=== PATIENT | female | born 1950 | race Caucasian/White ===

== ENCOUNTER 2018-10-19 08:00 | Emergency (ER) | payer MEDICARE, MEDICAID ==
[~2018-10-19] VITALS: Ht 157.5 cm; Wt 54.5 kg
[~2018-10-19 08:00] MED LIST: ALBU6.7H INH; AZIT250T PO; ESTR0.3T10 PO; HYDR1TAB PO
[2018-10-19 08:09] VITALS: BP 155/90
[2018-10-19] MEDS ORDERED: PENI500T2 PO (08:30)
[2018-10-19] MEDS ORDERED: HYDROcodone/acetaminophen 5mg/325mg tablet PO ONE (08:30)
--- NOTE | 2018-10-19 08:38 | NUR ---
PATIENT REQUEST AN RX FOR NORCO SINCE NO ONE CAN DRIVE HER HOME.ASTER CAMPBELL AWARE.
[2018-10-19] MEDS ORDERED: HYDR-3965 PO (08:49)
== END 2018-10-19 09:22 | disposition home or self-care (01) ==
LOC: ER 08:01
DX: K02.9 Dental caries, unspecified (principal); I10 Essential (primary) hypertension; M19.90 Unspecified osteoarthritis, unspecified site; Z98.890 Other specified postprocedural states; Z88.2 Allergy status to sulfonamides; Z79.1 Long term (current) use of non-steroidal anti-inflammatories (NSAID); Z79.899 Other long term (current) drug therapy
CPT/HCPCS: 99283

== ENCOUNTER 2022-01-21 21:15 | Emergency (ER) | payer MEDICARE, MEDICAID ==
[~2022-01-21] VITALS: Ht 157.5 cm; Wt 58.2 kg
[~2022-01-21 21:15] MED LIST changes: -ALBU6.7H INH; +ALBU6.7H9 INH
[2022-01-21 21:22] VITALS: BP 139/83
[2022-01-21 21:52] LABS: BASOPHILS # (AUTO) 0.1 X10'3 (0-0.2); BASOPHILS % (AUTO) 0.6 % (0-1); EOSINOPHILS # (AUTO) 0.3 X10'3 (0-0.9); EOSINOPHILS % (AUTO) 2.7 % (0-6); HEMATOCRIT 39.3 % (35.0-45.0); HEMOGLOBIN 13.1 g/dl (12.0-16.0); LYMPHOCYTES # (AUTO) 3.5 X10'3 (1.1-4.8); LYMPHOCYTES % (AUTO) 34.4 % (21-51); MEAN CORPUSCULAR HEMOGLOBIN 29.9 PG (27.0-31.0); MEAN CORPUSCULAR HGB CONC 33.5 g/dL (33.0-36.5); MEAN CORPUSCULAR VOLUME 89.3 FL (78-98); MEAN PLATELET VOLUME 7.5 FL (7.4-10.4); MONOCYTES # (AUTO) 0.7 X10'3 (0-0.9); MONOCYTES % (AUTO) 6.8 % (2-12); NEUTROPHILS # (AUTO) 5.6 X10'3 (1.8-7.7); NEUTROPHILS % (AUTO) 55.5 % (42-75); PLATELET COUNT 328 X10'3 (140-440); RED BLOOD COUNT 4.39 X10'6 (4.20-5.60); RED CELL DISTRIBUTION WIDTH 13.5 % (11.5-14.5); WHITE BLOOD COUNT 10.1 X10'3 (4.5-11.0)
[2022-01-21 22:08] LABS: ALANINE AMINOTRANSFERASE 27 U/L (12-78); ALBUMIN 3.9 G/DL (3.4-5.0); ALBUMIN/GLOBULIN RATIO 1.1 (1.1-1.5); ALKALINE PHOSPHATASE 136 IU/L (46-116); ANION GAP 14 (8-16); ASPARTATE AMINO TRANSFERASE 23 U/L (10-37); BILIRUBIN,TOTAL 0.6 MG/DL (0.1-1.0); BLOOD UREA NITROGEN 13 MG/DL (7-18); BUN/CREATININE RATIO 14.8 (6.6-38.0); CALCIUM 9.2 MG/DL (8.5-10.1); CHLORIDE 108 MMOL/L (99-107); CREATININE 0.88 MG/DL (0.40-0.90); GLUCOSE 113 MG/DL (70-104); POTASSIUM 3.6 MMOL/L (3.5-5.1); SODIUM 145 MMOL/L (135-145); TOTAL CARBON DIOXIDE 23.4 MMOL/L (24-32); TOTAL PROTEIN 7.6 G/DL (6.4-8.2); eGFR 63 ML/MIN
== END 2022-01-22 02:39 | disposition left against medical advice (07) ==
LOC: ER 21:16
DX: R53.1 Weakness (principal); Z53.21 Procedure and treatment not carried out due to patient leaving prior to being seen by health care provider
CPT/HCPCS: 36415; 71045; 80053; 83880; 84484; 85025; 93005

== ENCOUNTER 2022-10-18 07:38 | Emergency (ER) | payer MEDICARE, MEDICAID ==
[~2022-10-18] VITALS: Ht 157.5 cm; Wt 59.1 kg
[~2022-10-18 07:38] MED LIST changes: +ALBU6.7H14 INH; -ALBU6.7H9 INH
[2022-10-18 08:06] VITALS: BP 165/89
[2022-10-18] MEDS ORDERED: meclizine 12.5mg tablet PO ONE (09:30)
[2022-10-18] MEDS ORDERED: LORazepam 1 MG tablet PO ONE (09:30)
[2022-10-18] MEDS ORDERED: MECL-159 PO (09:34)
== END 2022-10-18 10:10 | disposition home or self-care (01) ==
LOC: ER 07:40
DX: H81.12 Benign paroxysmal vertigo, left ear (principal); I10 Essential (primary) hypertension; M19.90 Unspecified osteoarthritis, unspecified site; G89.29 Other chronic pain; M54.50 Low back pain, unspecified; Z90.710 Acquired absence of both cervix and uterus; Z88.2 Allergy status to sulfonamides
CPT/HCPCS: 99283; J8597

== ENCOUNTER 2023-07-27 18:57 | Emergency (ER) | payer MEDICARE, MEDICAID ==
[~2023-07-27] VITALS: Ht 157.5 cm; Wt 59.1 kg
[~2023-07-27 18:57] MED LIST changes: +MECL-302 PO
[2023-07-27 19:46] LABS: BILIRUBIN,URINE NEGATIVE (Neg); CLARITY,URINE CLOUDY (Clear); COLOR,URINE YELLOW (Yellow); GLUCOSE, URINE NEGATIVE (Neg); KETONES,URINE NEGATIVE (Neg); LEUKOCYTE ESTERASE ,URINE MODERATE (Neg); OCCULT BLOOD,URINE LARGE (Neg); PROTEIN,URINE 30 mg/dl (Neg)
[2023-07-27 20:04] LABS: NITRITES, URINE NEGATIVE (Neg); UA COLLECTION TYPE CLN CATCH MIDSTREAM
[2023-07-27 20:21] LABS: MUCUS STRANDS NONE SEEN /LPF (Neg); RBC,URINE TNTC /HPF (0-2); TRANSITIONAL EPI CELLS,URINE FEW /HPF; WBC,URINE TNTC /HPF (0-4)
[2023-07-27] MEDS ORDERED: CEFD300C3 PO (20:22)
[2023-07-27 20:23] LABS: SQUAMOUS EPITHELIAL CELL,UR MODERATE /LPF (FEW)
[2023-07-27 20:24] LABS: BACTERIA,URINE 4+ /HPF (Neg); WBC CLUMPS,URINE FEW /HPF (NEGATIVE)
[2023-07-27 20:30] VITALS: BP 177/85; PULSE 70; RESP 16; TEMP 98.6; O2SAT 95
== END 2023-07-27 21:23 | disposition home or self-care (01) ==
LOC: ER 18:58
DX: N39.0 Urinary tract infection, site not specified (principal); R31.9 Hematuria, unspecified; I10 Essential (primary) hypertension; G89.29 Other chronic pain; Z90.710 Acquired absence of both cervix and uterus; Z79.2 Long term (current) use of antibiotics; Z79.899 Other long term (current) drug therapy; Z88.2 Allergy status to sulfonamides
CPT/HCPCS: 81001; 87077; 87088; 87186; 99283

== ENCOUNTER 2023-10-17 12:19 | Emergency (ER) | payer MEDICARE, MEDICAID ==
[~2023-10-17] VITALS: Ht 157.5 cm; Wt 58.0 kg
[2023-10-17] MEDS ORDERED: AZIT250T83 PO (14:49)
[2023-10-17] MEDS ORDERED: ALBU8HFA INH (14:49)
[2023-10-17 15:03] VITALS: BP 165/96; PULSE 80; RESP 16; TEMP 98.5; O2SAT 100
== END 2023-10-17 15:05 | disposition home or self-care (01) ==
LOC: ER 12:20
DX: J06.9 Acute upper respiratory infection, unspecified (principal); Z20.822 Contact with and (suspected) exposure to COVID-19; I10 Essential (primary) hypertension; M19.90 Unspecified osteoarthritis, unspecified site; M54.9 Dorsalgia, unspecified; F41.9 Anxiety disorder, unspecified; Z90.710 Acquired absence of both cervix and uterus; Z88.2 Allergy status to sulfonamides
CPT/HCPCS: 36415; 71045; 87502; 87503; 87811; 99284

== ENCOUNTER 2024-08-20 07:30 | Inpatient (IN) | payer MEDICARE, MEDICAID ==
[2024-08-16 14:36] LABS: BASOPHILS # (AUTO) 0.1 X10'3 (0-0.2); BASOPHILS % (AUTO) 0.6 % (0-1); EOSINOPHILS # (AUTO) 0.2 X10'3 (0-0.9); EOSINOPHILS % (AUTO) 2.4 % (0-6); LYMPHOCYTES # (AUTO) 3.3 X10'3 (1.1-4.8); LYMPHOCYTES % (AUTO) 34.9 % (21-51); MEAN CORPUSCULAR HEMOGLOBIN 30.8 PG (27.0-31.0); MEAN CORPUSCULAR HGB CONC 33.4 g/dL (33.0-36.5); MEAN CORPUSCULAR VOLUME 92.3 FL (78-98); MEAN PLATELET VOLUME 7.8 FL (7.4-10.4); MONOCYTES # (AUTO) 0.7 X10'3 (0-0.9); MONOCYTES % (AUTO) 7.7 % (2-12); NEUTROPHILS # (AUTO) 5.1 X10'3 (1.8-7.7); NEUTROPHILS % (AUTO) 54.4 % (42-75); PRE OP HEMATOCRIT 39.4 % (35.0-45.0); PRE OP HEMOGLOBIN 13.1 g/dL (12.0-16.0); PRE OP PLATELET COUNT 302 X10'3 (140-440); PRE OP WHITE BLOOD COUNT 9.4 10'3 (4.8-10.8); RED BLOOD COUNT 4.26 X10'6 (4.20-5.60)
[2024-08-16 14:40] LABS: ALBUMIN 3.7 G/DL (3.4-5.0); ALBUMIN/GLOBULIN RATIO 1.1 (1.1-1.5); ALKALINE PHOSPHATASE 138 IU/L (46-116); BLOOD UREA NITROGEN 15 MG/DL (7-18); BUN/CREATININE RATIO 21.1 (10.0-20.0); CALCIUM 8.9 MG/DL (8.5-10.1); CHLORIDE 107 MMOL/L (99-107); CREATININE 0.71 MG/DL (0.40-0.90); PRE OP ALT 27 U/L (30-65); PRE OP ANION GAP 7 (8-16); PRE OP AST 31 U/L (10-37); PRE OP BILIRUB, TOTAL 0.8 MG/DL (0.0-1.0); PRE OP GLUCOSE 92 MG/DL (70-104); PRE OP POTASSIUM 4.4 MMOL/L (3.4-5.1); PRE OP SODIUM 142 MMOL/L (135-145); TOTAL CARBON DIOXIDE 27.7 MMOL/L (24-32); TOTAL PROTEIN 7.2 G/DL (6.4-8.2); eGFR 80 ML/MIN
[~2024-08-20] VITALS: Ht 157.5 cm; Wt 63.5 kg
[~2024-08-20 07:30] MED LIST changes: -ALBU6.7H14 INH; -AZIT250T PO; -ESTR0.3T10 PO; -HYDR1TAB PO; -MECL-302 PO; +NO HOME MEDS
[2024-08-21] VITALS (38 sets, daily range): BP systolic 112–171; BP diastolic 54–100; PULSE 47–95; RESP 10–22; TEMP 97.5–98.4; O2SAT 92–98
[2024-08-21] MEDS: ceFAZolin 2gm in dextrose, iso 50 ML IV ONE (06:02)
[2024-08-21] MEDS: famotidine 20mg tablet PO ONE (06:38)
[2024-08-21] MEDS: tranexamic acid 650mg tablet PO ONE (06:38)
[2024-08-21] MEDS: vancomycin/NS 1 GM ADD-VANTAGE 250 ML IV ONE (06:38)
[2024-08-21] MEDS ORDERED: vancomycin 1,000mg inj ONE (06:52)
[2024-08-21] MEDS ORDERED: ROPIVAcaine 0.5% (5mg/ml) 30ml vial ONE ×2 (06:53→07:29)
[2024-08-21] MEDS ORDERED: MIDAZolam 1 MG/ML 5ML VIAL ONE (07:20)
[2024-08-21] MEDS ORDERED: fentaNYL/PF 50MCG/1 ML 2ML syringe ONE (07:20)
[2024-08-21] MEDS ORDERED: propofol inj 20 ML IV ONE (07:22)
[2024-08-21] MEDS ORDERED: LIDOcaine 1%/PF 5ML 10 MG/ML VIAL ONE (07:22)
[2024-08-21] MEDS ORDERED: meperidine/PF 25mg/ml syringe IV PRN ×3 (07:35)
[2024-08-21] MEDS ORDERED: morphine 4 MG/ML inj SYRINge IV PRN (07:35)
[2024-08-21] MEDS ORDERED: labetalol 20mg/4ml (5mg/ml) syringe IV PRN (07:35)
[2024-08-21] MEDS ORDERED: sevoflurane 250ml liquid IH ONE (07:35)
[2024-08-21] MEDS ORDERED: ROPIVAcaine 0.2% (10 MG/5 ML) BOLUS INJECTION INTERSCALE PRN (07:35)
[2024-08-21] MEDS ORDERED: morphine 2 MG/ML inj. syringe IV PRN (07:35)
[2024-08-21] MEDS ORDERED: proCHLORperazine 10 MG/2 ml inj IV PRN (07:35)
[2024-08-21] MEDS ORDERED: ondansetron/PF 4mg/2ml inj IV PRN (07:35)
[2024-08-21] MEDS ORDERED: enalaprilat 1.25mg/ml 2ml vial IV PRN (07:35)
[2024-08-21] MEDS ORDERED: dexamethasone sod phosphate 4mg/ml inj. ONE (08:05)
[2024-08-21] MEDS ORDERED: rocuronium 10mg/ml inj IV ONE (08:05)
[2024-08-21] MEDS: ROPIVAcaine 0.2%/PF PUMP/bolus 545 ML INTERSCALE SCH (09:55)
[2024-08-21] MEDS ORDERED: acetaminophen 325mg tablet PO PRN (10:10)
[2024-08-21] MEDS ORDERED: diphenhydrAMINE 25mg capsule PO PRN ×2 (10:10)
[2024-08-21] MEDS ORDERED: bisacodyl 10mg suppository rectal RC PRN (10:10)
[2024-08-21] MEDS ORDERED: HYDROmorphone inj. 0.5 MG/0.5 ML DISP.SYRIN IV PRN (10:10)
[2024-08-21] MEDS ORDERED: magnesium hydroxide 30ml (MOM) UD suspension PO PRN (10:10)
[2024-08-21] MEDS: acetaminophen 325mg tablet PO SCH (14:00)
[2024-08-21] MEDS: ceFAZolin/D5W- 1GM premix 50 ML IV SCH (17:22)
[2024-08-21] MEDS: oxyCODONE IR 5mg (immed. release) tablet PO PRN (19:16)
[2024-08-21] MEDS: ringers solution, lacted 1,000 ML IV SCH ×2 (21:05)
[2024-08-21] MEDS: potassium cl 20mEq in 1/2 NS 1,000 ML IV SCH (21:14)
[2024-08-21] MEDS: vancomycin/NS 1 GM ADD-VANTAGE 250 ML IV SCH (21:14)
[2024-08-21] MEDS: sennosides 8.6mg tablet PO SCH (21:16)
[2024-08-22 02:00] VITALS: BP 134/65; PULSE 73; RESP 16; TEMP 97.9; O2SAT 94
[2024-08-22 06:00] VITALS: BP 141/59; PULSE 70; RESP 17; TEMP 96.5; O2SAT 94
[2024-08-22 06:37] LABS: BASOPHILS % (AUTO) 0.3 % (0-1); EOSINOPHILS % (AUTO) 0.3 % (0-6); HEMATOCRIT 33.7 % (35.0-45.0); LYMPHOCYTES # (AUTO) 2.6 X10'3 (1.1-4.8); LYMPHOCYTES % (AUTO) 18.8 % (21-51); MEAN CORPUSCULAR HEMOGLOBIN 30.1 PG (27.0-31.0); MEAN CORPUSCULAR HGB CONC 32.8 g/dL (33.0-36.5); MEAN CORPUSCULAR VOLUME 91.8 FL (78-98); MEAN PLATELET VOLUME 8.1 FL (7.4-10.4); MONOCYTES # (AUTO) 1.3 X10'3 (0-0.9); MONOCYTES % (AUTO) 9.4 % (2-12); NEUTROPHILS # (AUTO) 9.7 X10'3 (1.8-7.7); NEUTROPHILS % (AUTO) 71.2 % (42-75); PLATELET COUNT 265 X10'3 (140-440); RED BLOOD COUNT 3.66 X10'6 (4.20-5.60); RED CELL DISTRIBUTION WIDTH 12.8 % (11.5-14.5); WHITE BLOOD COUNT 13.6 X10'3 (4.5-11.0)
[2024-08-22 06:58] LABS: ANION GAP 9 (8-16); CHLORIDE 108 MMOL/L (99-107); SODIUM 140 MMOL/L (135-145)
[2024-08-22] MEDS ORDERED: celeCOXIB 100mg capsule PO SCH (08:00)
[2024-08-22] MEDS: aspirin 325mg tablet PO SCH (08:10)
[2024-08-22] MEDS: HYDROmorphone 1 mg/ml syringe IV PRN (12:28)
[2024-08-22] MEDS: ondansetron/PF 4mg/2ml inj IV PRN (14:21)
[2024-08-22] MEDS: HYDROmorphone 1 mg/ml syringe IV ONE (14:40)
[2024-08-22] MEDS: oxyCODONE IR 5mg (immed. release) tablet PO PRN (17:16)
[2024-08-22 18:00] VITALS: BP 146/65; PULSE 89; RESP 18; TEMP 97.9; O2SAT 92
[2024-08-22] MEDS: celeCOXIB 100mg capsule PO SCH (19:38)
[2024-08-22 22:00] VITALS: BP 173/80; PULSE 86; RESP 16; TEMP 99; O2SAT 94
[2024-08-23 06:00] VITALS: BP 138/57; PULSE 68; RESP 16; TEMP 97.5; O2SAT 98
[2024-08-23 06:56] LABS: BASOPHILS # (AUTO) 0.1 X10'3 (0-0.2); BASOPHILS % (AUTO) 0.5 % (0-1); EOSINOPHILS # (AUTO) 0.1 X10'3 (0-0.9); EOSINOPHILS % (AUTO) 0.9 % (0-6); HEMATOCRIT 33.2 % (35.0-45.0); HEMOGLOBIN 11.3 g/dl (12.0-16.0); LYMPHOCYTES # (AUTO) 2.7 X10'3 (1.1-4.8); LYMPHOCYTES % (AUTO) 23.9 % (21-51); MEAN CORPUSCULAR HEMOGLOBIN 31.1 PG (27.0-31.0); MEAN CORPUSCULAR HGB CONC 33.9 g/dL (33.0-36.5); MEAN CORPUSCULAR VOLUME 91.8 FL (78-98); MEAN PLATELET VOLUME 8.1 FL (7.4-10.4); MONOCYTES # (AUTO) 1.1 X10'3 (0-0.9); MONOCYTES % (AUTO) 9.6 % (2-12); NEUTROPHILS # (AUTO) 7.4 X10'3 (1.8-7.7); NEUTROPHILS % (AUTO) 65.1 % (42-75); PLATELET COUNT 242 X10'3 (140-440); RED BLOOD COUNT 3.62 X10'6 (4.20-5.60); RED CELL DISTRIBUTION WIDTH 13.1 % (11.5-14.5); WHITE BLOOD COUNT 11.4 X10'3 (4.5-11.0)
[2024-08-23 07:00] VITALS: RESP 16; O2SAT 98
[2024-08-23 10:00] VITALS: BP 158/85; PULSE 78; RESP 15; TEMP 98.1; O2SAT 96
[2024-08-23] MEDS ORDERED: acetaminophen 325mg tablet PO PRN (13:15)
[2024-08-23 16:30] VITALS: RESP 16
== END 2024-08-23 16:32 | disposition home or self-care (01) | DRG 483 ==
LOC: PAS IN 08-21 05:45 → ORTHO 4S 08-21 10:11
PROVIDERS: ADMIT Orthopaedic Surgery; ATTEND Orthopaedic Surgery
PROC: 0LS30ZZ Reposition Right Upper Arm Tendon, Open Approach (ICD-10-PCS; 2024-08-21)
PROC: 3E0T3BZ Introduction of Anesthetic Agent into Peripheral Nerves and Plexi, Percutaneous Approach (ICD-10-PCS; 2024-08-21)
PROC: 3E0T33Z Introduction of Anti-inflammatory into Peripheral Nerves and Plexi, Percutaneous Approach (ICD-10-PCS; 2024-08-21)
PROC: 0RRJ00Z Replacement of Right Shoulder Joint with Reverse Ball and Socket Synthetic Substitute, Open Approach (ICD-10-PCS; principal; 2024-08-21 07:35)
DX: M19.011 Primary osteoarthritis, right shoulder (principal); M65.911 Unspecified synovitis and tenosynovitis, right shoulder; M75.121 Complete rotator cuff tear or rupture of right shoulder, not specified as traumatic
CPT/HCPCS: 36415; 80051; 80053; 82948; 85025; 87081; 93005; 97110; 97116; 97161; 97530; A4565; A4618; A7000; C1776; G0378; J0690; J1100; J1171; J2250; J2405; J2704; J2710; J2795; J3010; J3370; J3480; J3490; J7120

== ENCOUNTER 2024-08-23 19:08 | Emergency (ER) | payer MEDICARE, MEDICAID | END 2024-08-23 19:20 | disposition left against medical advice (07) | LOC: ER 19:09 | DX: Z53.21 Procedure and treatment not carried out due to patient leaving prior to being seen by health care provider (principal); Z88.2 Allergy status to sulfonamides ==

== ENCOUNTER 2024-08-31 13:54 | Emergency (ER) | payer MEDICARE, MEDICAID ==
[~2024-08-31] VITALS: Ht 157.5 cm; Wt 59.0 kg
[2024-08-31 14:09] VITALS: BP 152/94; PULSE 63; RESP 18; TEMP 99; O2SAT 95
[2024-08-31 14:44] LABS: BILIRUBIN,URINE NEGATIVE (Neg); CLARITY,URINE SLIGHTLY CLOUDY (Clear); COLOR,URINE YELLOW (Yellow); GLUCOSE, URINE NEGATIVE (Neg); KETONES,URINE NEGATIVE (Neg); LEUKOCYTE ESTERASE ,URINE SMALL (Neg); NITRITES, URINE POSITIVE (Neg); OCCULT BLOOD,URINE LARGE (Neg); PROTEIN,URINE TRACE mg/dl (Neg); UROBILINOGEN,URINE 0.2 E.U/dL (0.2-1.0)
[2024-08-31 14:56] LABS: UA COLLECTION TYPE CLN CATCH MIDSTREAM
[2024-08-31 14:58] LABS: BACTERIA,URINE FEW /HPF (Neg); MUCUS STRANDS FEW /LPF (Neg); SQUAMOUS EPITHELIAL CELL,UR FEW /LPF (FEW); WBC,URINE 20-30 /HPF (0-4)
[2024-08-31] MEDS ORDERED: CEPH-585 PO (16:35)
[2024-08-31] MEDS ORDERED: ONDA-243 PO (16:35)
[2024-08-31] MEDS ORDERED: MAGN296S68 PO (16:36)
== END 2024-08-31 17:10 | disposition home or self-care (01) ==
LOC: ER 13:54
DX: N39.0 Urinary tract infection, site not specified (principal); K59.03 Drug induced constipation; T40.2X5A Adverse effect of other opioids, initial encounter; I10 Essential (primary) hypertension; M19.90 Unspecified osteoarthritis, unspecified site; G89.29 Other chronic pain; M54.9 Dorsalgia, unspecified; F41.9 Anxiety disorder, unspecified; Z88.2 Allergy status to sulfonamides; Z90.710 Acquired absence of both cervix and uterus; Z98.890 Other specified postprocedural states; Y92.89 Other specified places as the place of occurrence of the external cause
CPT/HCPCS: 81001; 87077; 87088; 87186; 99283

== ENCOUNTER 2025-04-15 19:04 | Emergency (ER) | payer MEDICARE, MEDICAID ==
[~2025-04-15] VITALS: Ht 157.5 cm; Wt 62.7 kg
[~2025-04-15 19:04] MED LIST changes: +CEPH-585 PO; +MAGN296S68 PO; +ONDA-243 PO
[2025-04-15 19:10] VITALS: TEMP 98
--- NOTE | 2025-04-15 19:20 | Physician Documentation ---
History of Present Illness ~ Chief Complaint: Wound Stated Complaint: INFECTION ON LEG Time Seen by MD: 19:20 Primary Medical Doctor: Dr. Harris HPI Patient presents to the emergency room with wound to her left lateral calf. She was states has been going on for a month ever since she got stuck with a thorn in this area. She states she has seen two weeks ago by another provider who performed incision and drainage and placed her on antibiotics. That has not improved since that time. Patient continues to have pain associated with lesion. Tetanus within 5 years?: Yes Medication Reconciliation Allergies: Coded Allergies: Sulfa (Sulfonamide Antibiotics) (Verified Allergy, Severe, DIFFICULTY BREATHING, 08/20/24) Scheduled Cephalexin*Monohydrate* (Keflex*), 2 CAP PO BID Magnesium Citrate (MAGNESIUM CITRATE oral solution), 296 ML PO ONCE Scheduled PRN ONDANSETRON ODT 4mg tablet (Ondansetron Odt), 1 TAB PO Q6H PRN PRN for nausea/vomiting Miscellaneous Medications Home Med List (No Home Medications), (Reported) Past Medical History Past Medical History: Hypertension, UTI, Arthritis, Chronic Pain, Chronic Back Pain, *INFECTIOUS DZ*, *CANCER*, Anxiety Past Surgical History: hysterectomy, orthopedic surgeries Alcohol Use: None Drug Use: none Lives with: Family Lives In: Home Occupation: retired Review of Systems ROS All review of systems negative except as per HPI Physical Exam Vital Signs: Temperature: 98.0, Source: Oral, Heart Rate: 70, Respiratory Rate: 16, BP: 156/72, Pulse Oximetry: 97, Weight: 62.700 Oxygen Flow Rate: 0 Physical Exam General: Patient is awake, alert, oriented x4 in no acute distress and well appearing.~ Head: Normocephalic and atraumatic. Eyes: Conjunctival normal. EOMI. PERRL. ENT: Mucous membranes moist. Neck: Supple, trachea is midline. Chest: Clear to auscultation bilaterally without rales, rhonchi, or wheezes. There is no accessory muscle use or retractions. Cardiac: RRR without murmurs, gallops, or rubs. Abd: Soft, nondistended, nontender, with normoactive bowel sounds. No guarding, rebound, or rigidity. Extremities: 2 cm x 2 cm painful mass to left lateral calf without associated cellulitis. No purulent drainage Procedures Procedures Incision and drainage: Status post informed verbal consent patient was sterilely cleaned and draped. 2 cc of lidocaine with epinephrine was placed locally to patient's wound on her left lateral calf. 11. Blade utilized to perform incision and drainage. Wound was explored and de loculated with no foreign body or purulence expressed. Antibiotic in bandage applied. Progress Results/Orders Results/Orders Orders - FELICE PAULSON MD Dressing Orders (04/15/25 19:23) Wound Care Orders (04/15/25 19:23) Completed Orders - FELICE PAULSON MD Lidocaine 1% W/Epi 1:100,000 (Xylocaine (04/15/25 19:25) Bacitracin Ointment (Bacitracin Ointment (04/15/25 19:25) Medications Received in ER Medications (Trade) Dose Ordered Sig/Ciro Route PRN Reason Start Time Stop Time Status Last Admin Dose Admin (Xylocaine 1%-EPI 1:100,000) Physician to administ... ONCE ONCE IJ 04/15/25 19:25 04/15/25 19:26 DC 04/15/25 19:35 20 ML (bacitracin ointment) 1 applic ONCE ONCE TP 04/15/25 19:25 04/15/25 19:26 DC 04/15/25 19:36 1 APPLIC Vital Signs 04/15/25 19:10 Temp 98.0 Pulse 70 Resp 16 B/P (MAP) 156/72 Pulse Ox 97 O2 Flow Rate 0 Medical Decision Making Findings Patient presents to the emergency room with lesion to the left lateral leg. Differentials include but are not limited to abscess, foreign body, basal cell carcinoma, inclusion cyst. Incision and drainage performed which did not show any foreign body or purulence. Possibility of cancer discussed with the patient. Departure Disposition: HOME / SELF CARE / HOMELESS Impression: Primary Impression: Wound Condition: Stable Discharge Instructions: Skin Abscess, [id number] Additional Instructions: No infection was seen on your incision and drainage today. Follow up with your doctor as you may need referral to [facility] for biopsy Referrals: NO PRIMARY CARE PROVIDER (PCP) Signature Scribe Signature: No scribe Attestation: The note accurately reflects work and decisions made by me.Felice Paulson MD 04/15/25 20:03 FELICE PAULSON MD Apr 15, 2025 19:20
[2025-04-15] MEDS: LIDOcaine 1% W/epiNEPHrine 1:100,000 20ml vial IJ ONE (19:35)
[2025-04-15] MEDS: bacitracin 15gm ointment TP ONE (19:36)
[2025-04-15 20:06] VITALS: BP 148/78; PULSE 68; RESP 16; O2SAT 98
== END 2025-04-15 20:07 | disposition home or self-care (01) ==
LOC: ER 19:05
DX: S80.922A Unspecified superficial injury of left lower leg, initial encounter (principal); I10 Essential (primary) hypertension; M19.90 Unspecified osteoarthritis, unspecified site; Z88.2 Allergy status to sulfonamides; Z90.710 Acquired absence of both cervix and uterus; F41.9 Anxiety disorder, unspecified; X58.XXXA Exposure to other specified factors, initial encounter; Y93.89 Activity, other specified; Y92.89 Other specified places as the place of occurrence of the external cause; Y99.8 Other external cause status
CPT/HCPCS: 10060; 99282; A6222; A6258; A6402; A6449; J3490; Z7610